=== PATIENT | male | born 1980 | race Hispanic/Latino ===

== ENCOUNTER → 2020-08-04 | Outpatient (CLI) | payer BC | END | disposition home or self-care (01) | LOC: RAH 12:50 | PROVIDERS: ATTEND Family Medicine | DX: E04.1 Nontoxic single thyroid nodule (principal) | CPT/HCPCS: 76536 ==

== ENCOUNTER → 2021-02-04 | Outpatient (CLI) | payer BC | END | disposition home or self-care (01) | LOC: RAH 09:13 | PROVIDERS: ATTEND Family Medicine | DX: E04.2 Nontoxic multinodular goiter (principal) | CPT/HCPCS: 76536 ==

== ENCOUNTER → 2021-11-04 | Outpatient (CLI) | payer BC | END | disposition home or self-care (01) | LOC: CANPRECLI → RAH 08:13 | PROVIDERS: ATTEND Family Medicine | DX: E04.2 Nontoxic multinodular goiter (principal) | CPT/HCPCS: 76536 ==

== ENCOUNTER → 2022-10-02 | Outpatient (CLI) | payer BC | END | disposition home or self-care (01) | LOC: RAH 14:17 | PROVIDERS: ATTEND Anesthesiology Pain Medicine | DX: M47.817 Spondylosis without myelopathy or radiculopathy, lumbosacral region (principal); M54.50 Low back pain, unspecified | CPT/HCPCS: 72148 ==

== ENCOUNTER → 2025-01-20 | Outpatient (CLI) | payer BC ==
--- NOTE | 2025-01-20 22:55 | HMCIMG ---
EXAMINATION: ULTRASOUND OF THE THYROID. CLINICAL HISTORY: Follow up nodules. COMPARISON: Ultrasound of the thyroid dated 01/01/2024. TECHNIQUE: Transverse and longitudinal images were obtained through both lobes and the isthmus of the thyroid. FINDINGS: The thyroid gland is normal in caliber with homogenous tissue echotexture. The right thyroid lobe measures 4.8 x 1.7 x 1.5 cm and the left thyroid lobe measures 3.9 x 1.4 x 1.2 cm in the craniocaudal, AP, and transverse dimensions respectively. The isthmus measures 0.00 cm in AP dimension. Right lobe: There is a hypoechoic solid nodule that measures 0.7 x 0.3 x 0.5 cm at the mid pole (TR4). Left lobe: There is a hyperechoic solid nodule that measures 0.4 x 0.4 x 0.4 cm inferior to the left lobe (TR3). No significantly enlarged lymph nodes. IMPRESSION: Nodules in both lobes of the thyroid. Cystic nodule in the left lobe from the prior ultrasound is not well visualized. TI-RADS follow up recommendations: TR1: no FNA required TR2: no FNA required TR3: more than or equal to 1.5 cm follow up, more than or equal to 2.5 cm FNA follow up: 1, 3 and 5 years TR4: more than or equal to 1.0 cm follow up, more than or equal to 1.5 cm FNA follow up: 1, 2, 3 and 5 years TR5: more than or equal to 0.5 cm follow up, more than or equal to 1.0 cm FNA annual follow up for up to 5 years /[place]
== END | disposition home or self-care (01) ==
LOC: RAH 14:22
PROVIDERS: ATTEND Family Medicine
DX: E04.2 Nontoxic multinodular goiter (principal)
CPT/HCPCS: 76536